=== PATIENT | female | born 1985 | race Hispanic/Latino ===

== ENCOUNTER 2019-03-20 06:36 | Emergency (ER) | payer OTHER ==
[2019-03-20 07:08] VITALS: BP 113/77; PULSE 73; RESP 20; TEMP 98.1; O2SAT 99
[2019-03-20] MEDS ORDERED: Sodium Chloride 0.9% 1,000 ML IV STA (07:31)
--- NOTE | 2019-03-20 08:05 | ED PDOC ---
HPI: Abdomen Time Seen by Provider: 03/20/19 07:05 Chief Complaint (Nursing): Abdominal Pain Chief Complaint (Provider): Abdominal pain History Per: Patient History/Exam Limitations: no limitations Onset/Duration Of Symptoms: Days Outside of [place] travel?: No Current Symptoms Are (Timing): Still Present Location Of Pain/Discomfort: RLQ, LLQ Quality Of Discomfort: Cramping, "Pain" Associated Symptoms: denies: Fever, Chills Additional Complaint(s): 33yo female with history of ruptured ovarian cysts, comes to ER reporting menstrual cramps. Patient states pain is present in lower abdomen and she has not experienced such pain in the past. She reports she is currently on day 3 of her menstrual period, took 600mg of motrin prior to arrival and currently reports the pain is improved. Otherwise, no fever, chills, chest pain, shortness of breath, vomiting, diarrhea, lightheadedness. No additional complaints. PMD: None Abnormal Vaginal Bleeding: No Last Menstral Period: Currently on menstrual period Past Medical History Reviewed: Historical Data, Nursing Documentation, Vital Signs Vital Signs: Last Vital Signs Temp 98.1 F 03/20/19 06:46 Pulse 73 03/20/19 06:46 Resp 20 03/20/19 06:46 BP 113/77 03/20/19 06:46 Pulse Ox 99 03/20/19 06:46 - Medical History Other PMH: ovarian cysts - Surgical History Surgical History: No Surg Hx - Family History Family History: States: No Known Family Hx - Social History Current smoker - smoking cessation education provided: No Alcohol: None Drugs: Denies - Allergies Allergies/Adverse Reactions: Allergies Allergy/AdvReac Type Severity Reaction Status Date / Time No Known Allergies Allergy Verified 03/20/19 07:31 Review of Systems ROS Statement: Except As Marked, All Systems Reviewed And Found Negative Constitutional: Negative for: Fever, Chills Cardiovascular: Negative for: Chest Pain, Light Headedness Respiratory: Negative for: Shortness of Breath Gastrointestinal: Positive for: Nausea, Abdominal Pain. Negative for: Vomiting, Diarrhea Genitourinary Female: Negative for: Dysuria, Frequency, Hematuria Physical Exam - Reviewed Nursing Documentation Reviewed: Yes Vital Signs Reviewed: Yes - Physical Exam Appears: Positive for: Non-toxic, No Acute Distress Head Exam: Positive for: ATRAUMATIC, NORMAL INSPECTION, NORMOCEPHALIC Skin: Positive for: Normal Color Eye Exam: Positive for: Normal appearance Neck: Positive for: Supple Cardiovascular/Chest: Positive for: Regular Rate, Rhythm. Negative for: Tachycardia Respiratory: Positive for: Normal Breath Sounds. Negative for: Respiratory Distress Gastrointestinal/Abdominal: Positive for: Soft, Tenderness (minimal lower abdominal tenderness, right > left). Negative for: Mass, Guarding, Rebound Back: Positive for: Normal Inspection. Negative for: L CVA Tenderness, R CVA Tenderness Extremity: Positive for: Normal ROM. Negative for: Pedal Edema, Deformity Neurological/Psych: Positive for: Awake, Alert, Oriented (x 3). Negative for: Motor/Sensory Deficits - ECG O2 Sat by Pulse Oximetry: 99 (RA) Pulse Ox Interpretation: Normal Medical Decision Making Medical Decision Making: Impression: lower abdominal pain, history of ovarian cysts Plan: -- Labs -- US transvaginal -- IV Fluids -- Zofran 4mg IV 1041 US Pelvis FINDINGS: UTERUS: Measures 9.7 x 4.4 x 5.4 cm. Anteverted normal in size and appearance. No fibroid or other mass lesion seen. ENDOMETRIUM: Measures 0.8 mm in diameter. Unremarkable. CERVIX: No cervical abnormality identified. RIGHT OVARY: Measures 3.2 x 2.0 x 3.4 cm. No solid mass. Normal flow. LEFT OVARY: Measures 2.4 x 1.4 x 2.4 cm. No solid mass. Normal flow. FREE FLUID: Tiny amount of fluid is present within the cul de sac OTHER FINDINGS: None. IMPRESSION: Tiny amount of free fluid seen within the cul-de-sac. Note that the patient refused transvaginal exam. Scribe Attestation: Documented by Guillermina Church acting as a scribe for Emilie Marshall MD. Provider Attestation: All medical record entries made by the Scribe were at my direction and personally dictated by me. I have reviewed the chart and agree that the record accurately reflects my personal performance of the history, physical exam, medical decision making, and the department course for this patient. I have also personally directed, reviewed, and agree with the discharge instructions and disposition. Disposition - Clinical Impression Clinical Impression: Abdominal cramps - Disposition Disposition: Left W/O Treatment Disposition Time: 11:30 Condition: UNKNOWN Forms: [employer] ([place])
--- NOTE | 2019-03-20 10:45 | US ---
Date of service: 03/20/2019 HISTORY: BLQ pain COMPARISON: None available. TECHNIQUE: Transabdominal sonographic evaluation of the pelvis performed. Note that the patient refused transvaginal study. FINDINGS: UTERUS: Measures 9.7 x 4.4 x 5.4 cm. Anteverted normal in size and appearance. No fibroid or other mass lesion seen. ENDOMETRIUM: Measures 0.8 mm in diameter. Unremarkable. CERVIX: No cervical abnormality identified. RIGHT OVARY: Measures 3.2 x 2.0 x 3.4 cm. No solid mass. Normal flow. LEFT OVARY: Measures 2.4 x 1.4 x 2.4 cm. No solid mass. Normal flow. FREE FLUID: Tiny amount of fluid is present within the cul de sac OTHER FINDINGS: None. IMPRESSION: Tiny amount of free fluid seen within the cul-de-sac. Note that the patient refused transvaginal exam.
== END 2019-03-20 11:30 | disposition left against medical advice (07) ==
LOC: H.ER 06:36
DX: R10.2 Pelvic and perineal pain (principal); N83.209 Unspecified ovarian cyst, unspecified side